=== PATIENT | male | born 1955 | race Caucasian/White ===

== ENCOUNTER → 2021-05-02 | Day surgery (SDC) | payer OTHER ==
[~2021-05-02] VITALS: Ht 188 cm; Wt 127.0 kg
[~2021-05-02] MED LIST: AMLO-187 PO; ATOR20TA58 PO; IV RINGERS,LACTATED 1000ML 1,000 ML IV SCH; LIDOCAINE 2% PF 5 ML VIAL. ONE; LOSA100T14 PO; METF850T8 PO; NADO20TA2 PO; OMEP40CA7 PO; PROPOFOL 10 MG/ML (20ML) VIAL. IV ONE
[2021-05-02 10:16] VITALS: BP 158/75
[2021-05-02 11:20] VITALS: BP 127/60
--- NOTE | 2021-05-02 12:16 | PREOP HP ---
DATE OF SERVICE: 05/02/2021 REQUESTING PHYSICIAN: Aristides Jain MD PRIMARY CARE PHYSICIAN: . REASON FOR PROCEDURE: History of esophageal varices. HISTORY OF PRESENT ILLNESS: This is a 65-year-old gentleman who presents today for followup of esophageal varices. ALLERGIES: AMOXICILLIN. MEDICATIONS: MAR reviewed. PAST MEDICAL HISTORY: Cirrhosis with esophageal varices, status post banding. FAMILY MEDICAL HISTORY: Noncontributory. SOCIAL HISTORY: Prior alcohol use. No tobacco or drug use. REVIEW OF SYSTEMS: A 13-point review of systems was done and is positive as per HPI and otherwise negative. PHYSICAL EXAMINATION: VITAL SIGNS: He is afebrile and his vital signs are stable. GENERAL: He is a well-developed, well-nourished male in no apparent distress. HEENT: Oropharynx is clear. CARDIOVASCULAR: S1, S2. LUNGS: Clear. ABDOMEN: Active bowel sounds, soft, nontender, nondistended. EXTREMITIES: No edema. NEUROLOGIC: Awake, alert and oriented x 3. ASSESSMENT AND PLAN: History of esophageal varices. The risks and benefits of procedure were explained. He has agreed to proceed. NELLY/DENZEL/ALEJANDRINA DR: NELLY/livia TID: [id number]
== END | disposition home or self-care (01) ==
LOC: ENDOS 09:47
PROVIDERS: ATTEND Internal Medicine Gastroenterology
DX: I85.00 Esophageal varices without bleeding (principal); K21.00 Gastro-esophageal reflux disease with esophagitis, without bleeding; K29.70 Gastritis, unspecified, without bleeding; K22.8 Other specified diseases of esophagus; K31.89 Other diseases of stomach and duodenum; I10 Essential (primary) hypertension; E78.00 Pure hypercholesterolemia, unspecified; E11.9 Type 2 diabetes mellitus without complications; Z79.84 Long term (current) use of oral hypoglycemic drugs; Z79.899 Other long term (current) drug therapy; Z98.890 Other specified postprocedural states; Z72.89 Other problems related to lifestyle
CPT/HCPCS: 43239; 88305; 88342; J2704